=== PATIENT | female | born 1975 | race Caucasian/White ===

== ENCOUNTER 2024-02-24 10:55 | Emergency (ER) | payer MEDICARE, MEDICAID ==
[2024-02-24 11:07] VITALS: BP 171/99; PULSE 114
== END 2024-02-24 11:29 | disposition home or self-care (01) ==
LOC: FB.ED 10:55
DX: S90.32XA Contusion of left foot, initial encounter (principal); Z79.899 Other long term (current) drug therapy; X58.XXXA Exposure to other specified factors, initial encounter
CPT/HCPCS: 99282; 99283